=== PATIENT | female | born 1960 ===

== ENCOUNTER 2018-09-30 07:48 | Day surgery (SDC) | payer OTHER ==
[~2018-09-30] VITALS: Ht 152.4 cm; Wt 82.6 kg
[2018-09-30] VITALS (12 sets, daily range): BP systolic 122–152; BP diastolic 76–95
[~2018-09-30 07:48] MED LIST: ceFAZolin 1gm IVPB IVPB ONE; celeBREX 200mg Cap **SURGERY PATIENTS ONLY ORAL ONE; oxyCONTIN 20mg tab ORAL ONE
--- NOTE | 2018-09-30 08:58 | Operative Note - PDOC ---
Operative Note Operative Note Pre-op Diagnosis: left knee internal derangemnt Procedure: see op report Post-op Diagnosis: same as pre-op plus Operative Findings: consistent w/pre-op dx studies Anesthesia: MAC Specimen: none Complications: none Condition: stable Estimated Blood Loss: none Implant(s) used?: No Anderson Bland MD Sep 30, 2018 08:58
--- NOTE | 2018-09-30 08:58 | Pre-Procedure Note/Attestation ---
Pre-Procedure Note/Attestation Complete Prior to Procedure Planned Procedure: left Procedure Narrative: knee arthroscopy, possible synovectomy, possible mensectomy Indications for Procedure Pre-Operative Diagnosis: left knee internal derangemnt Attestation I attest that I discussed the nature of the procedure; its benefits; risks and complications; and alternatives (and the risks and benefits of such alternatives ), prior to the procedure, with the patient (or the patient's legal sales representative leather [employer]). I attest that, if there was a reasonable possibility of needing a blood transfusion, the patient (or the patient's legal sales representative leather goods) was given the [facility] standardized written summary, pursuant to the [employer] [place] Blood Safety Act ([place] Health and Safety Code # 1645, as amended). I attest that I re-evaluated the patient just prior to the surgery and that there has been no change in the patient's H&P, except as documented below: Anderson Bland MD Sep 30, 2018 08:58
[2018-09-30] MEDS ORDERED: Sterile Water Irrig 1000ml IRRIG ONE (09:00)
[2018-09-30] MEDS ORDERED: Tylenol #3 tab (300mg/30mg) ORAL PRN (09:00)
[2018-09-30] MEDS ORDERED: LR 1000ml ONE (09:00)
[2018-09-30] MEDS ORDERED: NS Irrig 1000ml ONE (09:00)
[2018-09-30] MEDS ORDERED: NS Irrig 4000ml IRRIG ONE ×2 (09:00→10:02)
[2018-09-30] MEDS ORDERED: D5 1/2NS 1,000 ML IV SCH (09:00)
[2018-09-30] MEDS ORDERED: HYDROmorphone 1mg/ml Carpuject SUBQ PRN (09:00)
[2018-09-30] MEDS ORDERED: HYDROcodone/Acetamin 5/325 tab ORAL PRN (09:00)
[2018-09-30] MEDS ORDERED: oxyCONTIN 20mg tab ORAL ONE (09:05)
[2018-09-30] MEDS ORDERED: celeBREX 200mg Cap **SURGERY PATIENTS ONLY ORAL ONE (09:06)
[2018-09-30] MEDS ORDERED: LR 1000ml 1,000 ML IVLG SCH (09:12)
--- NOTE | 2018-09-30 09:12 | Anethesia Preoperative Eval ---
Anesthesia Pre-op PMH/ROS General Date of Evaluation: Sep 30, 2018 Anesthesiologist: Ty ASA Score: ASA 2 Mallampati Score Class I : Soft palate, uvula, fauces, pillars visible Class II: Soft palate, uvula, fauces visible Class III: Soft palate, base of uvula visible Class IV: Only hard plate visible Mallampati Classification: Class II Surgeon: Baldo Diagnosis: Left knee pain Surgical Procedure: Left knee arthroscopy Anesthesia History: none Family History: no anesthesia problems Allergies: Coded Allergies: No Known Allergies (Unverified , 09/29/18) Medications: see eMAR Patient NPO?: Yes NPO Date: Sep 29, 2018 NPO Time: 22:00 Past Medical History Cardiovascular: Reports: HTN, other - HLD; Denies: CAD, IA, valve dz, arrhythmia Pulmonary: Denies: asthma, COPD, BREN[place], other Gastrointestinal/Genitourinary: Reports: GERD; Denies: CRI, ESRD, other Neurologic/Psychiatric: Reports: depression/anxiety; Denies: dementia, CVA, TIA, other Endocrine: Reports: DM; Denies: hypothyroidism, steroids, other HEENT: Denies: cataract (L), cataract (R), glaucoma, KNIK (L), KNIK (R), other Hematology/Immune: Denies: anemia, DVT, bleeding disorder, other Musculoskeletal/Integumentary: Reports: OA; Denies: RA, DJD, DDD, edema, other Other: obesity PSxH Narrative: c/s Anesthesia Pre-op Phys. Exam Physician Exam Last Vital Signs Date Time Temp Pulse Resp B/P (MAP) Pulse Ox O2 Delivery O2 Flow Rate FiO2 09/30/18 09:01 98.1 81 18 138/92 99 Room Air Constitutional: NAD Cardiovascular: RRR Respiratory: CTA Airway Exam Mallampati Score: Class III MO: limited ROM: limited Anesthesia Pre-op A/P Labs see chart Studies Pre-op Studies: EKG - sr Risk Assessment & Plan Assessment: ASA II Plan: GA Status Change Before Surgery: No Pre-Antibiotics Drug: TBD Saba Graham MD Sep 30, 2018 09:12
[2018-09-30] MEDS ORDERED: Ketorolac 30mg Inj IV PRN (09:15)
[2018-09-30] MEDS ORDERED: LORazepam Inj 2mg/ml 1ml IV PRN (09:15)
[2018-09-30] MEDS ORDERED: Hydromorphone 0.5mg/0.5ml inj IVP PRN (09:15)
[2018-09-30] MEDS ORDERED: Midazolam 2mg/2ml Inj IVP PRN (09:15)
[2018-09-30] MEDS ORDERED: DiphenhydrAMINE 50mg/ml Inj IVP PRN (09:15)
[2018-09-30] MEDS ORDERED: fentaNYL 100 mcg/2 mL IV PRN (09:15)
[2018-09-30] MEDS ORDERED: Kenalog-40 1ml Vial ONE (09:27)
[2018-09-30] MEDS ORDERED: EPINEPHrine 1mg/1ml Amp ONE (09:27)
[2018-09-30] MEDS ORDERED: Ketorolac 30mg Inj ONE (09:27)
[2018-09-30] MEDS ORDERED: Lidocaine 1% 10mg/ml/EPI 0.01mg/ml 50ml INJ ONE (09:28)
[2018-09-30] MEDS ORDERED: Duramorph PF 5mg/10ml amp ONE (09:28)
[2018-09-30] MEDS ORDERED: Bupivacaine 0.25% Inj 30ml INJ ONE (09:28)
[2018-09-30] MEDS ORDERED: Bupivacaine w/Epi 0.25% 30ml Vial INJ ONE (09:28)
[2018-09-30] MEDS ORDERED: Midazolam 2mg/2ml Inj ONE (09:39)
[2018-09-30] MEDS ORDERED: Propofol 200mg/20ml IV ONE (09:39)
[2018-09-30] MEDS ORDERED: Lidocaine 1% MPF 10mg/ml 5ml ONE (09:39)
[2018-09-30] MEDS ORDERED: fentaNYL 100 mcg/2 mL IV ONE (09:39)
[2018-09-30] MEDS ORDERED: PROTONIX40 MG ORAL (10:16)
[2018-09-30] MEDS ORDERED: LIPITOR10 MG ORAL (10:17)
[2018-09-30] MEDS ORDERED: LOSARTAN POTASS25 MG ORAL (10:17)
[2018-09-30] MEDS ORDERED: vit d3 PO (10:18)
[2018-09-30] MEDS ORDERED: METOPROLOL TART50 M1 ORAL (10:19)
[2018-09-30] MEDS ORDERED: INVOKANA300 MG PO (10:20)
[2018-09-30] MEDS ORDERED: NORCO 5-325 TA1 EACH ORAL (10:20)
--- NOTE | 2018-09-30 10:31 | Immediate Post-Op Evaluation ---
Immediate Post-Op Evalulation Immediate Post-Op Evalulation Procedure: Left knee arthroscopy Date of Evaluation: Sep 30, 2018 Time of Evaluation: 10:33 IV Fluids: 600 Blood Products: 0 Estimated Blood Loss: min Urinary Output: 0 Blood Pressure Systolic: 145 Blood Pressure Diastolic: 89 Pulse Rate: 90 Respiratory Rate: 16 O2 Sat by Pulse Oximetry: 99 Temperature (Fahrenheit): 97.4 Pain Score (1-10): 0 Nausea: No Vomiting: No Complications 0 Patient Status: awake, reacts, patent, none Hydration Status: adequate Drug: Ancef 2g Given Within 1 Hr of Incision: Yes Saba Graham MD Sep 30, 2018 10:31
--- NOTE | 2018-09-30 10:32 | 48 Hour Post Anesthesia Eval ---
Post Anesthesia Evaluation Procedure: Left knee arthroscopy Date of Evaluation: Sep 30, 2018 Airway: patent Nausea: No Vomiting: No Pain Intensity: 0 Hydration Status: adequate Cardiopulmonary Status: at baseline Mental Status/LOC: patient returned to baseline Post-Anesthesia Complications: 0 Follow-up care needed: ready to discharge Saba Graham MD Sep 30, 2018 10:32
--- NOTE | 2018-09-30 21:45 | Operative Note - Dictated ---
DATE OF OPERATION: 09/30/2018 NOTE: "POOR AUDIO QUALITY" PREOPERATIVE DIAGNOSES: 1. Left knee internal derangement and meniscal tear. 2. Left knee chondral damage. POSTOPERATIVE DIAGNOSES: 1. Left knee medial femoral condyle chondral damage. 2. Symptomatic medial plica. 3. Left knee medial meniscus tear. 4. Hypertrophic fat pad syndrome. PROCEDURES: 1. Left knee arthroscopic partial medial meniscectomy. 2. Synovectomy of medial, lateral, and patellofemoral compartment. 3. Gentle chondroplasty of medial femoral condyle. SURGEON: Anderson Bland M.D. ANESTHESIA: General. INDICATION FOR PROCEDURE: The patient is a 58-year-old female, who has had continued left knee pain. MRI showed a meniscal tear. She failed conservative treatment and elected to undergo left knee arthroscopic medial meniscectomy. Risks, limitations, expectations, and complications of procedure were discussed in detail. All questions were addressed. DESCRIPTION OF PROCEDURE: After informed consent was obtained, the patient was taken to the operating room. The patient was placed under general anesthesia. The left leg was prepped and draped in a sterile manner. Time-out was performed. An inferolateral stab incision was then made. Trocar was introduced into the knee joint. Hypertrophic synovial tissue and fat pad made extremely difficult to visualization of the patellofemoral compartment, medial gutter, and also intercondylar notch. Camera was placed in the intercondylar notch. A working portal was attempted to be established. It was difficult trying to place the instruments. Therefore, the camera was repositioned in the patellofemoral compartment here. The shaver was then placed. At this point, excision of the medial plica and fat pad was performed to better visualize the patellofemoral compartment and medial gutter. Once that was done, the medial compartment was entered. There was a tear of the posterior horn of medial meniscus. Partial meniscectomy using a combination of biters and rogelio was performed. There was some grade 3 chondral damage of distal femoral condyle, which was also debrided. The camera was then placed in the intercondylar notch. Excision of the fat pad was completed in the intercondylar notch and the lateral compartment. The ACL was probed and noted to be intact. Lateral compartment was entered and was free of meniscal or chondral damage. Camera was then placed in the patellofemoral compartment. Excision of the fat pad and the remaining plica was performed. The instruments were removed. Portal sites were closed with 3-0 Monocryl sutures. Steri-Strips and a sterile dressing were applied. The patient was awoken and taken to recovery room with stable vital signs. ESTIMATED BLOOD LOSS: Minimal. COMPLICATIONS: None. SPECIMENS: None. IMPLANTS: None. Anderson Bland M.D. DR: BAR JOB#: [id number] CC: [email or web address]
== END 2018-09-30 13:15 | disposition home or self-care (01) ==
LOC: SUR 07:48
DX: S83.242A Other tear of medial meniscus, current injury, left knee, initial encounter (principal); M79.4 Hypertrophy of (infrapatellar) fat pad; M24.10 Other articular cartilage disorders, unspecified site; X58.XXXA Exposure to other specified factors, initial encounter; Y92.9 Unspecified place or not applicable; I10 Essential (primary) hypertension; E78.5 Hyperlipidemia, unspecified; K21.9 Gastro-esophageal reflux disease without esophagitis; F41.9 Anxiety disorder, unspecified; F32.9 Major depressive disorder, single episode, unspecified; E11.9 Type 2 diabetes mellitus without complications; M19.90 Unspecified osteoarthritis, unspecified site; E66.9 Obesity, unspecified; Z68.35 Body mass index [BMI] 35.0-35.9, adult
CPT/HCPCS: 29876; 29881; 82962; J0690; J1170; J1885; J2250; J2704; J3010; J3301; J3490; 94003; 94150